=== PATIENT | male | born 1960 ===

== ENCOUNTER → 2025-01-01 | Emergency (ER) | payer MEDICARE, OTHER ==
[~2025-01-01] VITALS: Ht 170.2 cm; Wt 72.6 kg
[~2025-01-01] MED LIST: HYDR-3972 PO; HYDROCODONE/APAP 5-325MG TABLET ONE; IBUPROFEN 800 MG TABLET ONE; LEVO50TA PO; METF-440 PO; ROSU10TA2 PO
[2025-01-01] MEDS: IBUPROFEN 800 MG TABLET PO ONE (01:22)
[2025-01-01] MEDS: HYDROCODONE/APAP 5-325MG TABLET PO ONE (02:14)
[2025-01-01 02:22] VITALS: BP 157/77; O2SAT 99
== END | disposition home or self-care (01) ==
LOC: ER 00:34
DX: S06.0XAA Concussion with loss of consciousness status unknown, initial encounter (principal); S02.2XXA Fracture of nasal bones, initial encounter for closed fracture; E03.9 Hypothyroidism, unspecified; E11.9 Type 2 diabetes mellitus without complications; E78.5 Hyperlipidemia, unspecified; Z79.84 Long term (current) use of oral hypoglycemic drugs; Z79.890 Hormone replacement therapy; Z79.899 Other long term (current) drug therapy; W01.0XXA Fall on same level from slipping, tripping and stumbling without subsequent striking against object, initial encounter; Y93.9 Activity, unspecified; Y92.9 Unspecified place or not applicable; Y99.9 Unspecified external cause status
CPT/HCPCS: 70450; 70486; 72125; A4606; A4663